=== PATIENT | female | born 1970 | race African-American/Black ===

== ENCOUNTER 2020-10-09 09:12 | Emergency (ER) | payer MEDICAID ==
[~2020-10-09] VITALS: Ht 175.3 cm; Wt 99.8 kg
[2020-10-09 09:29] VITALS: BP 141/79
--- NOTE | 2020-10-09 09:32 | NUR ---
ED Nurse Note: pt relates 4-5 days of irritation to bilateral eyes. unk if FB into eyes. no drainage noted.
[2020-10-09] MEDS ORDERED: ERYTHROMYCIN3.5 GM BOTH EYES (09:41)
[2020-10-09 09:45] VITALS: BP 139/76
--- NOTE | 2020-10-09 09:45 | NUR ---
ED Nurse Note: Pt cleared by health care Provider for discharge. DC instructions/prescription was given and explained to pt and verbalized understanding of teachings. All medical devices such as ID band removed. Pt is AAO x4, ambulatory and left with all personal belongings.
--- NOTE | 2020-10-09 11:03 | Emergency Room Report ---
History of Present Illness General Chief Complaint: Eye Problems Source: Patient Present Illness HPI 50-year-old female presents with bilateral eye redness and irritation x1 week. Denies any discharge. Denies any photophobia or blurry vision. States she notices these small bumps on her inner eyelid. Causing irritation. No other other no other aggravating relieving factors. Denies any other associated sy mptoms Allergies: Coded Allergies: No Known Allergies (Unverified , 10/09/20) COVID-19 Screening Contact w/high risk pt: No Experienced COVID-19 symptoms?: No COVID-19 Testing performed [employer]: Yes COVID-19 Screening: Negative COVID-19 COVID-19 Testing Source: work Patient History Past Medical History: DM, HTN, asthma Past Surgical History: none Pertinent Family History: none Social History: Denies: smoking, alcohol use, drug use Last Menstrual Period: none Now: No Immunizations: UTD Reviewed Nursing Documentation: PMH: Agreed; PSxH: Agreed Nursing Documentation-PMH Past Medical History: No History, Except For Hx Hypertension: Yes Hx Asthma: Yes Hx Diabetes: Yes Review of Systems All Other Systems: negative except mentioned in HPI Physical Exam Vital Signs Date Time Temp Pulse Resp B/P (MAP) Pulse Ox O2 Delivery O2 Flow Rate FiO2 10/09/20 09:18 98.4 84 18 141/79 (99) 97 Room Air Sp02 EP Interpretation: reviewed, normal General Appearance: no apparent distress, alert, GCS 15, non-toxic Head: normocephalic, atraumatic Eyes: bilateral eye PERRL, bilateral eye lid inflammation - small bumps noted to inner eyelid upper and lower bilaterally ENT: hearing grossly normal, normal pharynx, no angioedema, normal voice Neck: full range of motion, supple/symm/no masses Respiratory: chest non-tender, lungs clear, normal breath sounds, speaking full sentences Cardiovascular #1: regular rate, rhythm, no edema Cardiovascular #2: 2+ carotid (R), 2+ carotid (L), 2+ radial (R), 2+ radial (L), 2+ dorsalis pedis (R), 2+ dorsalis pedis (L) Gastrointestinal: normal bowel sounds, non tender, soft, non-distended, no guarding, no rebound Rectal: deferred Genitourinary: normal inspection, no CVA tenderness Musculoskeletal: back normal, normal range of motion, gait/station normal, non- tender Neurologic: alert, motor strength/tone normal, oriented x3, sensory intact, responsive, speech normal Psychiatric: judgement/insight normal, memory normal, mood/affect normal, no suicidal/homicidal ideation Reflexes: 3+ bicep (R), 3+ bicep (L), 3+ tricep (R), 3+ tricep (L), 3+ knee (R), 3+ knee (L) Lymphatic: no adenopathy Medical Decision Making Diagnostic Impression: Primary Impression: Blepharitis Qualified Codes: H01.00A - Unspecified blepharitis right eye, upper and lower eyelids; H01.00B - Unspecified blepharitis left eye, upper and lower eyelids ER Course Hospital Course 50-year-old female presents to ED with bilateral eye redness/irritation Differential diagnoses include: conjunctivitis, traumatic iritis, foreign body, corneal abrasion Clinical course Patient placed on stretcher. After initial history physical exam reveals female no acute distress. There is mild conjunctival irritation. There are small bumps noted to the inner eyelids bilaterally. I discussed findings with patient. Will discharge with erythromycin ointment. I will provide Ortho referrals. Safe for discharge close outpatient follow-up Diagnosis - blepharitis Stable and discharged to home with prescription for erythromycin ointment. Followup with PMD/Optho. Return to ED if symptoms recur or worsen Last Vital Signs Date Time Temp Pulse Resp B/P (MAP) Pulse Ox O2 Delivery O2 Flow Rate FiO2 10/09/20 09:45 82 18 139/76 97 Room Air 10/09/20 09:29 98.4 Status: improved Disposition: HOME, SELF-CARE Condition: Stable Scripts Erythromycin Base (ERYTHROMYCIN*) 3.5 Gm Oint...g. 1 APPLIC BOTH EYES QID for 7 Days, #3.5 GM 0 Refills Prov: Isidro Aguero MD 10/09/20 Referrals: Francis Sarah MD, Maziar M.D. MD NOT CHOSEN IPA/,REFERRING (PCP) Patient Instructions: Blepharitis, [place] Isidro Aguero MD Oct 09, 2020 11:03
== END 2020-10-09 09:45 | disposition home or self-care (01) ==
LOC: EMR 09:35
DX: H01.00B Unspecified blepharitis left eye, upper and lower eyelids (principal); H01.00A Unspecified blepharitis right eye, upper and lower eyelids; E11.9 Type 2 diabetes mellitus without complications; J45.909 Unspecified asthma, uncomplicated; I10 Essential (primary) hypertension
CPT/HCPCS: 99282